=== PATIENT | male | born 1950 | race Caucasian/White ===

== ENCOUNTER 2021-12-27 20:24 | Inpatient (IN) ==
[2021-12-28 00:09] LABS: Bacteria,Urine Few per hpf (None-Few); Bilirubin,Urine Negative (Negative); Blood,Urine Large (Negative); Clarity,Urine Clear (Clear); Color,Urine Yellow (Yellow); Glucose,Urine (UA) 300 mg/dL (Normal); Ketones,Urine 10 mg/dL (Negative); Leukocyte Esterase,Urine Small (Negative); Mucus,Urine Few per lpf (None-Few); Nitrite,Urine Negative (Negative); Protein,Urine 50 mg/dL (Neg-Trace); RBC,Urine 15-30 per hpf (0-3); Specific Gravity,Urine 1.029 (1.010-1.025); Squamous Epithelial Cell,Urine Few per hpf (None-Few); WBC,Urine 15-30 per hpf (0-3)
[2021-12-28] MEDS ORDERED: *HR* OxyCODONE/APAP 5/325 TABLET PO ONE (00:12)
[2021-12-28] MEDS ORDERED: *HR* Dextrose 50 % in Water (Syg) 50 ML SYRINGE IVP PRN ×2 (00:26→15:30)
[2021-12-28] MEDS ORDERED: Dextrose 4 GM Chewable Tablets PO PRN ×4 (00:26→15:30)
[2021-12-28] MEDS ORDERED: D5% in Water 1,000 ML IVC PRN ×2 (00:26→15:30)
[2021-12-28] MEDS ORDERED: Ondansetron 4 MG/2 ML VIAL IVP PRN ×3 (00:32→15:30)
[2021-12-28] MEDS ORDERED: Naloxone 0.4 MG/ML INJ IVP PRN ×2 (00:32→15:30)
[2021-12-28] MEDS ORDERED: Acetaminophen 325 MG TABLET PO PRN ×2 (00:32→15:30)
[2021-12-28 00:48] LABS: Basophils # 0.1 K/mcL (0.0-0.2); Basophils % 0.7 %; Eosinophils % 0.5 %; Hematocrit 41.3 % (37.5-50.1); Hemoglobin 14.1 g/dL (12.9-16.9); Immature Granulocytes % 0.5 % (0-4); Lymphocytes # 1.8 K/mcL (0.6-4.6); Lymphocytes % 20.7 %; Mean Corpuscular HGB Conc 34.1 g/dL (31.6-35.5); Mean Corpuscular Hemoglobin 29.9 pg (28.0-33.3); Mean Corpuscular Volume 87.5 fL (83.0-100.0); Mean Platelet Volume 10.7 fL (9.4-12.4); Monocytes # 0.9 K/mcL (0.0-1.3); Monocytes % 10.9 %; Neutrophils # 5.7 K/mcL (1.6-8.9); Platelet Count 262 K/mcL (140-400); Red Blood Count 4.72 M/mcL (4.19-5.50); Red Cell Distribution Width 12.2 % (11.5-14.5); Segmented Neutrophils % 66.7 %; White Blood Count 8.5 K/mcL (4.3-11.1)
[2021-12-28 00:58] LABS: Estimated Average Glucose 212 mg/dl
[2021-12-28 01:09] LABS: Albumin 3.5 g/dL (3.5-5.7); Albumin/Globulin Ratio 1.1 (1.1-2.2); Bilirubin,Total 1.1 mg/dL (0.3-1.0); Calcium 8.8 mg/dL (8.6-10.3); Chol/HDL Ratio 5.3 (0-4.9); Globulin 3.2 g/dL (2.4-3.5); Magnesium 1.9 mg/dL (1.6-2.6); Total Protein 6.7 g/dL (6.4-8.9)
[2021-12-28] MEDS ORDERED: polyethylene glycoL 3350 17 GM POWD.PACK PO PRN ×2 (01:52→15:30)
[2021-12-28] MEDS: Insulin LISPRO 300 UNITS/3 ML VIAL SUBQ SCH ×3 (05:02→17:28)
[2021-12-28] MEDS ORDERED: *HR* OxyCODONE Immed Rel 5 MG TABLET PO PRN ×5 (11:52→15:30)
[2021-12-28] MEDS ORDERED: *HR* HYDROmorphone PF 0.5 MG/0.5 ML SYRINGE IVP PRN (12:39)
[2021-12-28] MEDS ORDERED: *HR* Labetalol 20 MG/4 ML SYRINGE IVP PRN (12:39)
[2021-12-28] MEDS ORDERED: Acetaminophen IV 1,000 MG/100 ML BAG IVPB ONE ×2 (12:39→13:12)
[2021-12-28] MEDS ORDERED: Ketorolac 30 MG/ML VIAL IVP PRN (12:39)
[2021-12-28] MEDS ORDERED: Famotidine 20 MG/2 ML VIAL IVP ONE (12:39)
[2021-12-28] MEDS ORDERED: Promethazine 6.25 MG in Water for inj. (sterile) 20 ML IVPB PRN (12:39)
[2021-12-28] MEDS ORDERED: *HR* HYDROmorphone 2 MG TABLET PO PRN (12:39)
[2021-12-28] MEDS ORDERED: *HR* Propofol 200 MG/20 ML VIAL IVP ONE (12:48)
[2021-12-28] MEDS ORDERED: *HR* Midazolam HCl 2 MG/2 ML VIAL ONE (12:48)
[2021-12-28] MEDS ORDERED: Ondansetron 4 MG/2 ML VIAL ONE (12:48)
[2021-12-28] MEDS ORDERED: *HR* FentaNYL (PF) 100 MCG/2 ML VIAL ONE (12:48)
[2021-12-28] MEDS ORDERED: Famotidine 20 MG/2 ML VIAL ONE (13:12)
[2021-12-28] MEDS ORDERED: CeFAZolin Syr 3,000MG/30 ML 3,000 MG/30 ML SYRINGE IVPB ONE (13:16)
[2021-12-28] MEDS ORDERED: CeFAZolin Syr 2,000MG/20 ML 2,000 MG/20 ML SYRINGE IVPB ONE (13:29)
[2021-12-28] MEDS ORDERED: Isovue-300 50ML VIAL ONE (13:32)
[2021-12-28] MEDS ORDERED: Lidocaine HCL 4 ML Topical Solution (Laryng-O-Jet Kit Sterile Pak) TP ONE (13:42)
[2021-12-28] MEDS ORDERED: Lidocaine -MPF 2% 2 ML VIAL ONE (13:56)
[2021-12-28] MEDS ORDERED: Sugammadex Sodium 200 MG/2 ML VIAL IV ONE ×2 (14:07→14:14)
[2021-12-29] MEDS: Insulin LISPRO 300 UNITS/3 ML VIAL SUBQ SCH ×2 (00:31→05:47)
[2021-12-29 07:59] VITALS: BP 162/79; PULSE 53; TEMP 97.5; O2SAT 97
[2021-12-29 10:07] LABS: Calcium 8.7 mg/dL (8.6-10.3); Potassium 5.1 mEq/L (3.5-5.1)
== END 2021-12-29 10:30 | disposition home or self-care (01) | DRG 660 ==
LOC: 3ANU → SUATTDRO 22:51
PROVIDERS: ADMIT Internal Medicine; ATTEND Internal Medicine